=== PATIENT | female | born 1975 | race Caucasian/White ===

== ENCOUNTER 2020-05-29 12:03 | Inpatient (IN) ==
[2020-05-29 13:08] LABS: Basophils % 0.6 % (0.0-0.8); Eosinophils # 0.1 10*3/uL (0.0-0.87); Eosinophils % 1.5 % (0.00-10.9); Hematocrit 41.7 VOL% (35.7-47.0); Hemoglobin 13.8 GM/DL (12.0-16.0); Immature Granulocytes % 0.6 %; Immature Granulocytes Absolute 0.03 #; Lymphocytes # 1.3 10*3/uL (1.4-4.0); Lymphocytes % 26.8 % (21.3-54.2); Mean Corpuscular HGB Conc 33.1 GM/DL (32-36); Mean Corpuscular Volume 88.5 FL (87-102); Mean Platelet Volume 9.8 FL (9.6-12.0); Monocytes % 11.6 % (1.7-12.7); Neutrophils % 58.9 % (38.7-73.9); Platelet Count 242 T/CUMM (130-400); Red Blood Count 4.71 MC/CUMM (3.8-5.5); Red Cell Distribution Width 13.1 % (9.3-17.3); White Blood Count 4.8 T/CUMM (4-12)
[2020-05-29] MEDS ORDERED: SODIUM CHLORIDE 0.9% 1,000 ML IV STA (13:10)
[2020-05-29 13:32] LABS: Alanine Aminotransferase 35 U/L (13-56); Albumin 3.1 G/DL (3.4-5.0); Alkaline Phosphatase 128 U/L (45-117); Aspartate Amino Transferase 30 U/L (0-37); Bilirubin,Total < 0.39 MG/DL (0.2-1.0); Blood Urea Nitrogen 12 MG/DL (7-18); Calcium 8.7 MG/DL (8.5-10.1); Estimated Glom Filtration Rate 139 ML/MIN; Glucose 94 MG/DL (74-106); Osmolality,Calculated 276.5 MOS/KG (273-304); Total Protein 7.7 G/DL (6.4-8.3)
[2020-05-29 13:34] LABS: Ferritin 46.9 ng/ml (8-252)
[2020-05-29] MEDS ORDERED: ONDANSETRON 4 MG/2 ML VIAL IV PRN (14:57)
[2020-05-29] MEDS ORDERED: GLUCAGON 1 MG VIAL IM PRN (14:57)
[2020-05-29] MEDS ORDERED: DEXTROSE 50% 25 GM/50 ML VIAL IV PRN (14:57)
[2020-05-29] MEDS ORDERED: hydrALAZINE 20 MG/1 ML VIAL IV PRN (14:57)
[2020-05-29] MEDS: ZINC SULFATE 220 MG CAPSULE PO SCH (16:18)
[2020-05-29] MEDS: AZITHROMYCIN 250 MG TABLET PO SCH (16:18)
[2020-05-29] MEDS: cefTRIAXone 1,000 MG in SYRINGE 1 EACH IV SCH ×2 (19:27→21:02)
[2020-05-29] MEDS: ENOXAPARIN 40 MG/0.4 ML SYRINGE SUBCUT SCH (21:03)
[2020-05-30 06:35] LABS: Basophils % 0.4 % (0.0-0.8); Eosinophils # 0.1 10*3/uL (0.0-0.87); Eosinophils % 1.5 % (0.00-10.9); Hematocrit 39.4 VOL% (35.7-47.0); Hemoglobin 12.9 GM/DL (12.0-16.0); Immature Granulocytes % 0.6 %; Immature Granulocytes Absolute 0.03 #; Lymphocytes # 1.2 10*3/uL (1.4-4.0); Lymphocytes % 23.7 % (21.3-54.2); Mean Corpuscular HGB Conc 32.7 GM/DL (32-36); Mean Corpuscular Volume 89.1 FL (87-102); Mean Platelet Volume 10.5 FL (9.6-12.0); Monocytes % 12.3 % (1.7-12.7); Neutrophils % 61.5 % (38.7-73.9); Platelet Count 220 T/CUMM (130-400); Red Blood Count 4.42 MC/CUMM (3.8-5.5); Red Cell Distribution Width 13.2 % (9.3-17.3); White Blood Count 5.2 T/CUMM (4-12)
[2020-05-30 07:14] LABS: Bilirubin,Total 0.6 MG/DL (0.2-1.0); Calcium 8.1 MG/DL (8.5-10.1); Ferritin 44.4 ng/ml (8-252); Osmolality,Calculated 275.5 MOS/KG (273-304); Risk Ratio 2.5; Thyroid Stimulating Hormone 4.37 uIU/ml (0.358-3.74); Total Protein 6.9 G/DL (6.4-8.3); VLDL CHOLESTEROL 19.2 MG/DL
[2020-05-30] MEDS ORDERED: POTASSIUM CHLORIDE 20 MEQ TABLET PO ONE (07:53)
[2020-05-30] MEDS: PANTOPRAZOLE 40 MG TABLET PO SCH (08:56)
[2020-05-30] MEDS: ZINC SULFATE 220 MG CAPSULE PO SCH (08:56)
[2020-05-30] MEDS: DEXAMETHASONE 10 MG/1 ML VIAL IV SCH (08:57)
[2020-05-30] MEDS: AZITHROMYCIN 250 MG TABLET PO SCH (08:57)
[2020-05-30] MEDS: BENZONATATE 100 MG CAPSULE PO SCH ×2 (15:06→20:38)
[2020-05-30] MEDS: PRAMIPEXOLE 0.25 MG TABLET PO SCH ×2 (15:06→20:37)
[2020-05-30] MEDS: LORazepam 1 MG TABLET PO SCH ×2 (15:06→20:37)
[2020-05-30] MEDS: cefTRIAXone 1,000 MG in SYRINGE 1 EACH IV SCH (18:07)
[2020-05-30] MEDS: ENOXAPARIN 40 MG/0.4 ML SYRINGE SUBCUT SCH (20:37)
[2020-05-30] MEDS: BENZTROPINE 1 MG TABLET PO SCH (20:37)
[2020-05-30] MEDS: lamoTRIgine 25 MG TABLET PO SCH (20:37)
[2020-05-30] MEDS: OXcarbazepine 300 MG TABLET PO SCH (20:38)
[2020-05-30] MEDS: TOPIRAMATE 100 MG TABLET PO SCH (20:38)
[2020-05-30] MEDS ORDERED: ARIPiprazole 10 MG TABLET PO SCH (21:00)
[2020-05-31 06:05] LABS: Basophils % 0.3 % (0.0-0.8); Eosinophils % 0.3 % (0.00-10.9); Hematocrit 37.5 VOL% (35.7-47.0); Hemoglobin 12.3 GM/DL (12.0-16.0); Immature Granulocytes % 1.1 %; Immature Granulocytes Absolute 0.07 #; Lymphocytes # 1.6 10*3/uL (1.4-4.0); Lymphocytes % 24.6 % (21.3-54.2); Mean Corpuscular HGB Conc 32.8 GM/DL (32-36); Mean Corpuscular Volume 90.1 FL (87-102); Mean Platelet Volume 10.2 FL (9.6-12.0); Monocytes % 10.2 % (1.7-12.7); Neutrophils % 63.5 % (38.7-73.9); Platelet Count 242 T/CUMM (130-400); Red Blood Count 4.16 MC/CUMM (3.8-5.5); Red Cell Distribution Width 13.2 % (9.3-17.3); White Blood Count 6.4 T/CUMM (4-12)
[2020-05-31 06:37] LABS: Albumin 2.9 G/DL (3.4-5.0); Bilirubin,Total 0.5 MG/DL (0.2-1.0); Calcium 8.6 MG/DL (8.5-10.1); Osmolality,Calculated 273.7 MOS/KG (273-304); Total Protein 6.9 G/DL (6.4-8.3)
[2020-05-31] MEDS ORDERED: LEVOTHYROXINE 125 MCG TABLET PO SCH (07:00)
[2020-05-31] MEDS ORDERED: POTASSIUM CHLORIDE 20 MEQ TABLET PO ONE ×2 (07:52→11:16)
[2020-05-31] MEDS ORDERED: SERTRALINE 100 MG TABLET PO SCH (09:00)
[2020-05-31] MEDS: OXcarbazepine 300 MG TABLET PO SCH (09:02)
[2020-05-31] MEDS: PRAMIPEXOLE 0.25 MG TABLET PO SCH (09:02)
[2020-05-31] MEDS: BENZONATATE 100 MG CAPSULE PO SCH (09:02)
[2020-05-31] MEDS: lamoTRIgine 25 MG TABLET PO SCH (09:02)
[2020-05-31] MEDS: BENZTROPINE 1 MG TABLET PO SCH (09:03)
[2020-05-31] MEDS: AZITHROMYCIN 250 MG TABLET PO SCH (09:03)
[2020-05-31] MEDS: DEXAMETHASONE 10 MG/1 ML VIAL IV SCH (09:03)
[2020-05-31] MEDS: ZINC SULFATE 220 MG CAPSULE PO SCH (09:03)
[2020-05-31] MEDS: LORazepam 1 MG TABLET PO SCH (09:03)
[2020-05-31] MEDS: TOPIRAMATE 100 MG TABLET PO SCH (09:03)
[2020-05-31] MEDS: PANTOPRAZOLE 40 MG TABLET PO SCH (09:03)
[2020-05-31 11:41] VITALS: BP 121/74
[2020-05-31] MEDS ORDERED: ASCORBIC ACID 500 MG TABLET PO SCH (21:00)
== END 2020-05-31 13:40 | disposition home or self-care (01) | DRG 177 ==
LOC: N.ED 12:03 → N.EDINP 14:57 → N.2E 15:57
PROVIDERS: ADMIT Internal Medicine; ATTEND Internal Medicine